=== PATIENT | female | born 1965 | race Caucasian/White ===

== ENCOUNTER 2022-07-26 17:23 | Emergency (ER) | payer MEDICAID, OTHER ==
[~2022-07-26] VITALS: Ht 160 cm; Wt 57.0 kg
[2022-07-26 17:25] VITALS: BP 140/96
[2022-07-26] MEDS ORDERED: SODIUM CHLORIDE 0.9% 1,000 ML IV ONE (18:45)
[2022-07-26] MEDS ORDERED: FAMOTIDINE 20MG/2ML VIAL IV ONE (19:00)
[2022-07-26] MEDS ORDERED: ONDANSETRON HCL 4MG/2ML INJ IV ONE (19:00)
[2022-07-26 19:15] LABS: HEMATOCRIT. 39.9 % (36.0-48.0); HEMOGLOBIN. 13.8 g/dL (12.0-16.0); MEAN CORPUSCULAR HEMOGLOBIN 33.4 pg (28.0-32.0); MEAN CORPUSCULAR VOLUME 96.5 fL (81.0-99.0); MEAN PLATELET VOLUME 7.6 fl (7.4-10.4); PLATELET 180 x1000/uL (130-400); RED BLOOD CELL COUNT 4.14 mill/uL (4.2-5.4); RED CELL DISTRIBUTION WIDTH 14.3 % (11.6-14.6)
[2022-07-26 19:16] LABS: CHLORIDE 101 mEq/L (98-107)
[2022-07-26 19:30] LABS: BG BASE EXCESS 0.2 mmol/L (-2.0-2.0); BG CARBOXYHEMOGLOBIN 0.9 % (0.5-1.5); BG DEOXYHEMOGLOBIN 4.7 % (0.0-5.0); BG FRACTION INSPIRED OXYGEN 21; BG HCO3 ACT 22.7 mmol/L (22.0-26.0); BG METHEMOGLOBIN 0.4 % (0.0-1.5); BG OXYGEN SATURATION 95.2 % (92.0-98.5); BG PCO2 30.9 mmHg (35.0-45.0); BG PH 7.484 (7.350-7.450); BG PO2 72.6 mmHg (75.0-100.0); BG SAMPLE SITE RIGHT BRACHIAL; BG TOTAL HEMOGLOBIN 14.5 g/dL (12.0-18.0); BG VENT MODE ROOM AIR
[2022-07-26 19:30] LABS: BETA HYDROXYBUTYRATE 0.3 mMol/L (0.0-0.3)
[2022-07-26 19:31] LABS: INR 1.1; PROTHROMBIN TIME 11.8 sec (9.6-11.0)
[2022-07-26 20:25] LABS: PLATELET ESTIMATE NORMAL
[2022-07-26] MEDS ORDERED: ONDANSETRON HCL 4MG/2ML INJ IV NR (21:15)
[2022-07-26] MEDS ORDERED: FAMOTIDINE 20MG/2ML VIAL IV NR (21:15)
[2022-07-26] MEDS ORDERED: ONDA4TAB11 PO (22:45)
[2022-07-26] MEDS ORDERED: FAMO-135 MT (22:45)
== END 2022-07-26 23:16 | disposition home or self-care (01) ==
LOC: ER 17:23
DX: R10.13 Epigastric pain (principal); R11.2 Nausea with vomiting, unspecified; E11.9 Type 2 diabetes mellitus without complications; I10 Essential (primary) hypertension
CPT/HCPCS: 36415; 36600; 71045; 76705; 80053; 82010; 82375; 82805; 83690; 84484; 85025; 85610; 96361; 96374; 96375; 99285; J2405; J3490; J7030; Z7610